=== PATIENT | male | born 1985 | race Caucasian/White ===

== ENCOUNTER 2020-11-29 09:15 | Emergency (ER) | payer MEDICAID, SELFPAY ==
--- NOTE | ~2020-11-29 | XR_ITS ---
EXAMINATION: XR HAND, RIGHT CLINICAL INFORMATION: Pain and swelling status post punching table. COMPARISON: None TECHNIQUE: PA, lateral, and oblique views of the right hand. FINDINGS: Mild deformity is seen at the bases of the third, fourth and fifth metacarpals. Mild degenerative changes are seen at the fifth carpometacarpal joint. The carpal bones are normally aligned. The distal radius and ulna are intact. The soft tissues are unremarkable. XR/XR hand RT min 3V IMPRESSION: Mild deformity at the bases of the third through fifth metacarpals without definitive acute fracture. Mild fifth carpometacarpal degenerative joint changes. These findings could represent old healed fractures. A definitive acute fracture is not seen. If swelling persists or worsens, a short-term repeat study with oblique views of the right hand is recommended.
[2020-11-29 09:26] VITALS: BP 130/85; PULSE 80; RESP 16; TEMP 36.8; O2SAT 100; BMI 21.6
--- NOTE | 2020-11-29 10:38 | ED_ITS ---
HPI - Extremity Problem General Chief complaint: Extremity Injury, Upper Stated complaint: HAND INJURY Time Seen by Provider: 11/29/20 10:38 History of Present Illness HPI Narrative: Patient complains of right hand pain after punching a table, no numbness no weakness no tingling, no laceration Related Data Previous Rx's Medication Instructions Recorded ibuprofen 600 mg PO Q6H PRN #20 tab 11/29/20 Allergies Allergy/AdvReac Type Severity Reaction Status Date / Time No Known Allergies Allergy Unverified 06/09/20 17:43 Review of Systems Review of Systems: Positive for right hand pain negatives are dizziness, no weakness no fever no chills no numbness no weakness no tingling, no other joint pains Yes all other systems are reviewed and are negative PMFSH Past Medical History Source: nursing notes reviewed Medical History (Updated 11/29/20 @ 11:06 by THOMAS Kumar) No known health problems Social History Social History Smoking Status: Current every day smoker Smoked in Last 30 Days: Yes Use of substances other than those prescribed or required for medical reasons: No Advance Directives: Yes Advance Directives Information Provided: Yes Advance Directives on File: No Physical Exam Vital Signs: Vital Signs: Last Vital Signs Temp 98.3 F 11/29/20 09:26 Pulse 80 11/29/20 09:26 Resp 16 11/29/20 09:26 BP 130/85 11/29/20 09:26 Pulse Ox 100 11/29/20 09:26 Body Mass Index 21.6 General appearance no acute distress, comfortable and cooperative Head normocephalic atraumatic Neck is supple Respiratory no distress Extremities the right hand had dorsal swelling, no obvious deformity, limited range of motion in the fingers with limited flexion and extension due to pain, the wrist had full range of motion, no evidence of tendon deficit on flexion or extension, neurovascular intact Other extremities normal Course Course Course Narrative: X-ray showed question of old fracture versus new so patient was splinted and will follow with Ortho for re-evaluation Discharge Plan Discharge Clinical Impression: Fracture of hand Qualifiers: Encounter type: initial encounter Fracture type: closed Laterality: right Q ualified Code(s): S62.91XA - Unspecified fracture of right wrist and hand, initial encounter for closed fracture Patient Disposition: Home, Self-Care Additional Instructions: You may have broken your right hand but it is not clear from the x-ray Because it was broken before in the same spot it is unclear if the findings on x-ray are new meeting a new fracture, or old showing scarring bone from healed fracture We will splint it as if it is broken, follow with orthopedist for re-evaluation Return any concerns Prescriptions: New ibuprofen 600 mg tablet 600 mg PO Q6H PRN (Reason: pain) Qty: 20 RF: 0 Referrals: Pierre Ervin MD [Physician] - 2 days (Acute versus old fracture of the right becerra nd with pain and swelling on the dorsal hand and x-ray inconclusive) Stand Alone Forms: Work/School Release Interventions: ED Discharge Assessment Last Done: 11/29/20 11:12 Discharge Date/Time: 11/29/20 11:13
== END 2020-11-29 11:13 | disposition home or self-care (01) ==
PROVIDERS: Emergency Provider Emergency Medicine Emergency Medical Services
DX: S69.91XA Unspecified injury of right wrist, hand and finger(s), initial encounter (principal); M25.531 Pain in right wrist; X58.XXXA Exposure to other specified factors, initial encounter; Y93.9 Activity, unspecified; Y92.9 Unspecified place or not applicable; Y99.9 Unspecified external cause status; F17.200 Nicotine dependence, unspecified, uncomplicated; Z71.6 Tobacco abuse counseling
CPT/HCPCS: 29125; 73130; 99283